=== PATIENT | female | born 1990 | race Caucasian/White ===

== ENCOUNTER 2016-11-22 13:42 | Emergency (ER) | payer BC, MEDICAID ==
--- NOTE | 2016-11-22 15:53 | RAD ---
HISTORY: Inversion injury COMPARISONS: None VIEWS: 3, Frontal, lateral, and oblique views of the left foot FINDINGS: BONE DENSITY: Normal. BONES: There is a chronic appearing, possibly fibrous union fracture of the proximal third metatarsal. There is no acute fracture. JOINTS: There is no arthropathy. ALIGNMENT: There is no dislocation. SOFT TISSUES: Unremarkable. OTHER FINDINGS: None. IMPRESSION: CHRONIC APPEARING FRACTURE OF THE PROXIMAL THIRD METATARSAL. NO ACUTE OSSEOUS INJURY. IF SYMPTOMS PERSIST, RECOMMEND REPEAT IMAGING.
--- NOTE | 2016-11-22 15:53 | RAD ---
HISTORY: Inversion injury COMPARISONS: Left foot dated November 22, 2016 VIEWS: 3, Frontal, lateral, and oblique views of the left ankle FINDINGS: BONE DENSITY: Normal. BONES: Again noted is a chronic appearing fracture of the proximal third metatarsal. There is no acute fracture. JOINTS: There is no arthropathy. ALIGNMENT: There is no dislocation. SOFT TISSUES: Unremarkable. OTHER FINDINGS: None. IMPRESSION: NO ACUTE OSSEOUS INJURY. AGAIN NOTED IS CHRONIC APPEARING FRACTURE OF THE PROXIMAL THIRD METATARSAL. IF SYMPTOMS PERSIST, RECOMMEND REPEAT IMAGING.
[2016-11-22 16:06] VITALS: BP 112/64
--- NOTE | 2016-11-22 16:54 | UC ---
Lower Extremity/Ankle HPI - HPI Summary HPI Summary: INJURY FOUR MONTHS AGO TWISTED LEFT FOOT AND ANKLE; TWO DAYS AGO TWISTED AND HIT LEFT FOOT AGAIN, PAIN TO TOP OF FOOT WORSENING. - History of Current Complaint Chief Complaint: UCLowerExtremity Stated Complaint: FOOT PAIN Time Seen by Provider: 11/22/16 14:59 Hx Obtained From: Patient, Family/Housing Inspectors Hx Last Menstrual Period: 11/10/16 Onset/Duration: Sudden Onset, Gradual Onset, Lasting Days, Lasting Weeks - 4 MONTHS, Still Present, Worse Since - TODAY Severity Initially: Mild Severity Currently: Moderate Pain Intensity: 5 Pain Scale Used: 0-10 Numeric Aggravating Factor(s): Standing, Ambulation Alleviating Factor(s): Rest, Elevation Able to Bear Weight: Yes - WITH DISCOMFORT - Risk Factors Gout Risk Factors: Negative DVT Risk Factors: Negative Septic Arthritis Risk Factor: Negative - Allergies/Home Medications Allergies/Adverse Reactions: Allergies Allergy/AdvReac Type Severity Reaction Status Date / Time Cefprozil [From Cefzil] Allergy Hives Verified 11/22/16 13:55 Home Medications: Home Medications Control Pill 1 tab PO DAILY 11/22/16 [History Confirmed 11/22/16] Omeprazole CAP* [Prilosec CAP* 20 MG] 20 mg PO DAILY 11/22/16 [History Confirmed 11/22/16] PMH/Surg Hx/FS Hx/Imm Hx Previously Healthy: Yes - Surgical History Surgical History: Yes Surgery Procedure, Year, and Place: 2014 - Family History Known Family History: Negative: Other - NO JOINT LAXITY - Social History Occupation: Employed Full-time Lives: With Family Alcohol Use: Rare Substance Use Type: Marijuana Substance Use Comment - Amount & Last Used: everyday Smoking Status (MU): Light Every Day Tobacco Smoker Type: Cigarettes Amount Used/How Often: 5-10 per day Review of Systems Constitutional: Negative Skin: Negative Eyes: Negative ENT: Negative Respiratory: Negative Cardiovascular: Negative Gastrointestinal: Negative Genitourinary: Negative Motor: Negative Neurovascular: Negative Musculoskeletal: Arthralgia, Edema, Myalgia Neurological: Negative Psychological: Negative All Other Systems Reviewed And Are Negative: Yes Physical Exam Triage Information Reviewed: Yes Appearance: Well-Appearing, No Pain Distress, Well-Nourished Vital Signs: Initial Vital Signs Temp 98.1 F 11/22/16 13:47 Pulse 105 11/22/16 13:47 Resp 18 11/22/16 13:47 BP 141/76 11/22/16 13:47 Pulse Ox 99 11/22/16 13:47 Vital Signs Reviewed: Yes Eye Exam: Normal ENT Exam: Normal Dental Exam: Normal Neck exam: Normal Respiratory Exam: Normal Respiratory: Positive: Chest non-tender, Lungs clear, Normal breath sounds, No respiratory distress Cardiovascular Exam: Normal Cardiovascular: Positive: RRR, No Murmur, Pulses Normal Abdominal Exam: Normal Musculoskeletal: Positive: ROM Intact, Strength Limited @ - LEFT FOOT ANKLE, Edema @ - LEFT Neurological Exam: Normal Psychological Exam: Normal Psychological: Positive: Normal Response To Family Skin Exam: Normal Lower Extremity Course/Dx - Differential Dx/Diagnosis Differential Diagnosis/HQI/PQRI: Fracture (Closed), Sprain, Strain Provider Diagnoses: CLOSED CHRONIC APPEARING FRACTURE OF LEFT PROXIMAL THIRD METATARSAL Discharge - Discharge Plan Condition: Stable Disposition: HOME Patient Education Materials: Foot Fracture in Adults (ED) Forms: *Work Release Referrals: Teddy Vera MD [Medical Doctor] - Estelle Mendoza PA [Primary Care Provider] -
== END 2016-11-22 16:33 | disposition home or self-care (01) ==
LOC: UCCORT 13:42
DX: S92.335G Nondisplaced fracture of third metatarsal bone, left foot, subsequent encounter for fracture with delayed healing (principal); W22.8XXD Striking against or struck by other objects, subsequent encounter; Z88.1 Allergy status to other antibiotic agents; F12.90 Cannabis use, unspecified, uncomplicated; F17.210 Nicotine dependence, cigarettes, uncomplicated
CPT/HCPCS: 99203; G0463

== ENCOUNTER 2017-01-05 08:40 | Day surgery (SDC) | payer MEDICAID ==
[~2017-01-05 08:40] MED LIST: Buffered Lidocaine 0.9% SYRIN* 5 ML/SYR SYRINGE INTRADERM ONE
[2017-01-05] MEDS ORDERED: Clindamycin 900 MG IVPREMIX(* 900 MG/50 ML SDV IV ONE ×2 (08:51)
[2017-01-05] MEDS ORDERED: Buffered Lidocaine 0.9% SYRIN* 5 ML/SYR SYRINGE ONE ×2 (08:51)
[2017-01-05] MEDS ORDERED: fentaNYL* 50 MCG/ML 2 ML VIAL (100 MCG VIAL) ONE ×4 (09:40→12:02)
[2017-01-05] MEDS ORDERED: Famotidine IV* 10 MG/ML 2 ML (20 mg) ONE ×4 (09:40→10:54)
[2017-01-05] MEDS ORDERED: Midazolam* 1 MG/ML 2 ML VIAL (2 MG) ONE ×2 (09:40)
[2017-01-05] MEDS ORDERED: Lidocaine 2% PF * 5 ML VIAL ONE ×2 (10:54)
[2017-01-05] MEDS ORDERED: Ketorolac INJ* 30 MG/ML 1 ML VIAL ONE ×2 (10:54)
[2017-01-05] MEDS ORDERED: Propofol* 10 MG/ML 20 ML BTL IV PUSH ONE ×2 (10:54)
[2017-01-05] MEDS ORDERED: Dexamethasone IV* 4 MG/ML 1 ML (4 MG) ONE ×2 (10:54)
[2017-01-05] MEDS ORDERED: Rocuronium* 10 MG/ML VIAL ONE ×2 (10:55)
[2017-01-05] MEDS ORDERED: DiMENhydriNATE IV* 50 MG/ML VIAL IV PUSH PRN (10:57)
[2017-01-05] MEDS ORDERED: Acetaminophen TAB* 325 MG PO PRN (10:57)
[2017-01-05] MEDS ORDERED: HYDROcodone/ACETAMIN 5-325 MG* 1 TAB PO PRN (10:57)
[2017-01-05] MEDS ORDERED: fentaNYL* 50 MCG/ML 2 ML VIAL (100 MCG VIAL) IV PRN (10:57)
[2017-01-05] MEDS ORDERED: PROCHLORPERAZINE INJ 5 MG/ML 2 ML VIAL IV PRN (10:57)
[2017-01-05] MEDS ORDERED: Levalbuterol 0.63MG/3ML NEB* UNIT OF USE INH PRN (10:57)
[2017-01-05] MEDS ORDERED: HYDROmorphone INJ* 1 MG/ML CARPUJECT SYRINGE IV PRN (10:57)
[2017-01-05] MEDS ORDERED: HYDROmorphone INJ* 1 MG/ML CARPUJECT SYRINGE ONE ×4 (12:14→14:01)
[2017-01-05] MEDS ORDERED: oxyCODONE TAB* 5 MG TAB ONE ×2 (14:01)
[2017-01-05 15:11] VITALS: BP 115/65
--- NOTE | 2017-01-05 21:01 | RAD ---
CPT II Codes: 6045F INDICATION: Left foot ORIF TECHNIQUE: Intraoperative fluoroscopy was provided during plate and screw fixation of the left third metatarsal. FINDINGS: A single spot film depicts a plate and screw fixator spanning the proximal left third metatarsal. Fluoroscopy time: 1 second IMPRESSION: As above.
--- NOTE | 2017-01-06 03:36 | OP ---
DATE OF OPERATION: 01/05/17 - [facility] DATE OF : 89 ATTENDING SURGEON: Sebas Alvarado MD. LEASE ANALYST: Atiya Gil PA-C. ANESTHESIOLOGIST: Dr. Knight ANESTHESIA: General PRE-OP DIAGNOSIS: Nonunion, left third metatarsal fracture. POST-OP DIAGNOSIS: Nonunion, left third metatarsal fracture. OPERATIVE PROCEDURE: Open reduction internal fixation, left third metatarsal fracture, nonunion with some graft on. DESCRIPTION OF PROCEDURE: The patient was taken to the operating room where a curvilinear incision was made over the dorsum of the third metatarsal. We incised between the long tendons, incising a short brevis tendon, which coursed obliquely. The nonunion was identified and taken down with 15 blade and a small freer elevator. The fracture surfaces were prepared for fixation using a 2.4 mm bur, and we placed a small amount of graft on into the defect. We then used the 4 hole dorsal locking Synthes plate to fix the fracture. We used the pins above proximal and distal to the fracture for compression and then the plate was precontoured and fixed with the 2.7 mm cortical screws. Excellent fixation alignment was obtained and verified with a C-arm. We then irrigated thoroughly closing with 2-0 Vicryl and 3-0 nylon. A compression dressing and plaster splint applied. [id number]/[facility] #: [id number] MTDD
== END 2017-01-05 15:07 | disposition home or self-care (01) ==
LOC: OR 08:40
PROVIDERS: ATTEND Orthopaedic Surgery
DX: S92.33 Fracture of third metatarsal bone (principal); F17.210 Nicotine dependence, cigarettes, uncomplicated; W22.8XXD Striking against or struck by other objects, subsequent encounter; Y92.89 Other specified places as the place of occurrence of the external cause
CPT/HCPCS: 76000; 81025; A9270-GY; C1713; C1776; C9359; J1100; J1170; J1885; J2250; J2704; J3010

== ENCOUNTER 2017-08-09 15:33 | Emergency (ER) | payer MEDICAID, OTHER ==
--- OUTSIDE RECORDS SUMMARY | 2017-08-09 15:46 | XMS REPORT ---
:1990 External Reference #:[id number] Author Organization [facility] Address [address] [address] Phone [phone] Care Team Providers Name Role Phone [facility] Care Team Information Speech Teacher Unavailable Estelle Mendoza RPA Primary Care Physician Unavailable Payers Type Date Identification Numbers Payment Provider Subscriber Medicaid Policy Number: [id number] Medicaid Peyton Tucker Group Name: 1 1 [address] PayID: [id number] [place] [address] Problems Description No Information Family History Date Family Member(s) Problem(s) Comments General Diabetes General Hypertension Father Diabetes Mother Hypertension Social History Type Date Description Comments Marital Status Single Lives With Boyfriend Lives With Children 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 ETOH Use Rarely consumes alcohol Recreational Drug Use sporadically uses herbal supplements Smoking Patient is a former smoker Daily Caffeine Consumes on average 2 cups of regular coffee per day Daily Caffeine Consumes on average 2 sodas per day Exercise Type/Frequency Exercises regularly Allergies, Adverse Reactions, Alerts Date Description Reaction Status Severity Comments 12/24/2016 Cefzil Urticaria active 03/18/2017 Seasonal-Fall active Medications Medication Date Status Form Strength Qnty SIG Indications Ordering Provider Omeprazole Active Capsules DR 20mg 1 by Unknown 000 mouth every day Ibuprofen Active Capsules 200mg 3 po as Unknown 000 needed Oxycodone HCL Hx Tablets 5mg 40tabs 1-2 tabs Sebas 017 - by mouth Christiano every 4-6 M.D. 017 hours as needed Vital Signs Date Vital Result Comment 07/29/2017 Height 70 inches 5'10" Weight 270.00 lb Heart Rate 66 /min BP Systolic Sitting 132 mmHg BP Diastolic Sitting 78 mmHg Respiratory Rate 18 /min Pain Level 7 BMI (Body Mass Index) 38.7 kg/m2 03/18/2017 Height 70 inches 5'10" Heart Rate 98 /min BP Systolic 134 mmHg BP Diastolic 74 mmHg Respiratory Rate 20 /min Pain Level 0 O2 % BldC Oximetry 99 % 02/18/2017 Height 70 inches 5'10" Weight 270.00 lb Heart Rate 92 /min BP Systolic Sitting 128 mmHg BP Diastolic Sitting 68 mmHg Respiratory Rate 18 /min Pain Level 0 BMI (Body Mass Index) 38.7 kg/m2 01/28/2017 Height 70 inches 5'10" Weight 270.00 lb Heart Rate 90 /min BP Systolic Sitting 142 mmHg BP Diastolic Sitting 82 mmHg Respiratory Rate 20 /min Pain Level 0 BMI (Body Mass Index) 38.7 kg/m2 01/14/2017 Height 70 inches 5'10" Weight 270.00 lb Heart Rate 102 /min BP Systolic Sitting 120 mmHg BP Diastolic Sitting 70 mmHg Respiratory Rate 18 /min Body Temperature 99.4 F Pain Level 4 BMI (Body Mass Index) 38.7 kg/m2 12/24/2016 Height 70 inches 5'10" Weight 264.00 lb Heart Rate 60 /min BP Systolic Sitting 142 mmHg BP Diastolic Sitting 86 mmHg Respiratory Rate 18 /min Pain Level 5 BMI (Body Mass Index) 37.9 kg/m2 11/24/2016 Height 70 inches 5'10" Weight 265.00 lb Heart Rate 92 /min BP Systolic Sitting 132 mmHg BP Diastolic Sitting 78 mmHg Respiratory Rate 16 /min Pain Level 5 O2 % BldC Oximetry 98 % Ra BMI (Body Mass Index) 38.0 kg/m2 Results Test Date Test Result H/L Range Note Xray 12/09/2016 CT Extremity Lower Left Wo <pending> Procedures Date CPT Code Description Status 03/18/2017 55538 Rad Exam; Foot Comp Completed 02/18/2017 58551 Rad Exam; Foot Comp Completed 01/14/2017 90944 Rad Exam; Foot Comp Completed 01/14/2017 06073 Short Leg Cast Completed 01/05/2017 19340 Repair Nonunion/Malunion Metatarsal Completed 01/05/2017 17525 Repair Nonunion/Malunion Metatarsal Completed Encounters Type Date Location Provider CPT E/M Dx Office Visit 07/29/2017 [facility] Sebas Alvarado, 84807 [id number] 2:45p Of Pharmacist [facility]ardo Office Visit 12/24/2016 [facility] Sebas Alvarado 21523 [id number] 3:00p Of Pharmacist Manager At [facility] Office Visit 11/24/2016 [place] [address] [id number] 1:15p Of Pharmacist [facility] [place] [id number] Plan of Care 07/29/2017 - Sebas Alvarado M.D.[id number] Nondisp fx of 3rd metatarsal bone, l ft, 7thKNew Xrays:Foot Left 3+ VWSCT Extremity Lower Left WoFollow up:after testing is completed
--- OUTSIDE RECORDS SUMMARY | 2017-08-09 15:46 | XMS REPORT ---
:1990 External Reference #:[id number] Author Organization [facility] Address [address] [place] [address] Phone [phone] Care Team Providers Name Role Phone [facility] Care Team Information Supervisor Engine Repair Unavailable Estelle Mendoza RPA Primary Care Physician Unavailable Payers Type Date Identification Numbers Payment Provider Subscriber Medicaid Policy Number: [id number] Medicaid Peyton Tucker Group Name: 1 1 [address] PayID: [id number] [place] [address] Problems Description No Information Family History Date Family Member(s) Problem(s) Comments General Diabetes General Hypertension Father Diabetes Mother Hypertension Social History Type Date Description Comments Marital Status Single Lives With Boyfriend Lives With Children 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 Rarely consumes alcohol Recreational Drug [...] needed Vital Signs Date Vital Result Comment 08/05/2017 Height 70 inches 5'10" Weight 270.00 lb Heart Rate 84 /min BP Systolic Sitting 118 mmHg BP Diastolic Sitting 60 mmHg Respiratory Rate 16 /min Pain Level 4 BMI (Body Mass Index) 38.7 kg/m2 07/29/2017 Height 70 inches 5'10" Weight 270.00 [...] Procedures Date CPT Code Description Status 03/18/2017 21746 Rad Exam; Foot Comp Completed 02/18/2017 32537 Rad Exam; Foot Comp Completed 01/14/2017 52502 Rad Exam; Foot Comp Completed 01/14/2017 04630 Short Leg Cast Completed 01/05/2017 05655 Repair Nonunion/Malunion Metatarsal Completed 01/05/2017 61901 Repair Nonunion/Malunion Metatarsal Completed Encounters Type Date Location Provider CPT E/M Dx Office Visit 08/05/2017 [facility] Sebas Alvarado [id number] 10:30a [facility]2016 [facility] Sebas Alvarado 46283 [id number] 3:00p [facility] [place] [address] [id number] 1:15p Of [facility] [id number] Plan of Care Future Appointment(s):09/02/2017 2:45 pm - Sebas Alvarado M.D. at [facility]/02/2018 - Sebas Alvarado M.D.[id number] Nondisp fx of 3rd metatarsal bone, l ft, 7thKFollow up:3-4 weeks
[2017-08-09 16:05] VITALS: BP 131/80
--- NOTE | 2017-08-09 16:42 | UC ---
General HPI - HPI Summary HPI Summary: pt states fx L foot 01/20. had surgery 3rd metatarsal. 07/24/17 slipped on water at work causing foot pain. f/u dr dan-ortho. told fx but old vs new and placed in a boot plus out of work. was to return to work tomorrow but past 3 days is having a sharp shooting pain from her L buttock into her L leg and foot. States prior hx of sciatica and this feels the same. admits to some low back discomfort. denies back injury, numb/weak extremities, fever, saddle anesthesia plus bowel/bladder dysfunction. - History of Current Complaint Chief Complaint: UCLowerExtremity Stated Complaint: LEFT FOOT INJURY Time Seen by Provider: 08/09/17 16:16 Hx Obtained From: Patient Hx Last Menstrual Period: 07/27/17 Onset/Duration: Gradual Onset Timing: Constant Pain Intensity: 5 Alleviating: nothing - Allergy/Home Medications Allergies/Adverse Reactions: Allergies Allergy/AdvReac Type Severity Reaction Status Date / Time cefprozil [From Cefzil] Allergy Hives Verified 08/09/17 16:07 latex Allergy Rash Verified 08/09/17 16:07 PMH/Surg Hx/FS Hx/Imm Hx - Additional Past Medical History Additional PMH: L foot fx, sciatica GI/ History: Gastroesophageal Reflux - Surgical History Surgical History: Yes Surgery Procedure, Year, and Place: 2014-[place]- WITH REMOVAL LARGE CYST FROM [place]. 01/2017 3rd Metatarsal plate - Family History Known Family History: Negative: Other - NO JOINT LAXITY - Social History Occupation: Employed Full-time Lives: With Family Alcohol Use: Rare Substance Use Type: Marijuana Substance Use Comment - Amount & Last Used: USED WITHIN THE LAST WEEK Smoking Status (MU): Former Smoker Type: Cigarettes Amount Used/How Often: 5-10 per day DECREASED TO 2-5 CIGARETTES PER DAY X OFF AND ON 10 YRS Have You Smoked in the Last Year: Yes - Immunization History Vaccination Up to Date: Yes Review of Systems Constitutional: Negative Skin: Negative Eyes: Negative ENT: Negative Respiratory: Negative Cardiovascular: Negative Gastrointestinal: Negative Genitourinary: Negative Motor: Negative Neurovascular: Negative Musculoskeletal: Other: - low back ache with sharp pain from l buttock down L leg Neurological: Negative Psychological: Negative Is Patient Immunocompromised?: No All Other Systems Reviewed And Are Negative: Yes Physical Exam Triage Information Reviewed: Yes Appearance: Well-Appearing Vital Signs: Initial Vital Signs Temp 98.1 F 08/09/17 15:59 Pulse 87 08/09/17 15:59 Resp 16 08/09/17 15:59 BP 131/80 08/09/17 15:59 Pulse Ox 100 08/09/17 15:59 Eyes: Positive: Conjunctiva Clear ENT: Positive: Normal ENT inspection Neck: Positive: Supple, Nontender, No Lymphadenopathy Respiratory: Positive: Lungs clear, Normal breath sounds Cardiovascular: Positive: RRR, No Murmur Abdomen Description: Positive: Nontender, No Organomegaly, Soft Bowel Sounds: Positive: Present Musculoskeletal: Positive: Other: - LLE: Boot L foot, removed by pt. Leg has no swelling, discoloration. post op scar L foot. No calf pain or cords. S/V M is intact. Back: no gross deformity, swelling or discoloration. Mild tenderness paraspinal mm lumbar region. ROM is intact. L sciatic notch tenderness. + straight leg raise on L. no saddle anesthesia. 2+ reflexes and 5/5 strength x4. steady gait. Neurological: Positive: Alert Psychological: Positive: Age Appropriate Behavior Skin Exam: Normal Course/Dx - Course Course Of Treatment: no concern for DVT, cellulitis. no cauda equina. hx and exam c/w sciatica. will tx nsaid and PT. pt to resume her boot per orthopedics. - Differential Dx - Multi-Symptom Provider Diagnoses: sciatica L Discharge - Sign-Out/Discharge Documenting (check all that apply): Discharge/Admit/Transfer - Discharge Plan Condition: Stable Disposition: HOME Prescriptions: Naproxen [Naprosyn 500 mg tab] 500 mg PO BID #14 tablet Patient Education Materials: Sciatica (ED) Forms: *Work Release Referrals: Estelle Mendoza PA [Primary Care Provider] - 7 Days - Billing Disposition and Condition Condition: STABLE Disposition: HOME
== END 2017-08-09 16:56 | disposition home or self-care (01) ==
LOC: UCCORT 15:33
DX: M54.32 Sciatica, left side (principal); Z87.891 Personal history of nicotine dependence
CPT/HCPCS: 99212; G0463

== ENCOUNTER 2018-11-15 13:29 | Emergency (ER) | payer MEDICAID, OTHER ==
[2018-11-15 14:02] VITALS: BP 148/58
--- NOTE | 2018-11-15 14:11 | UC ---
Skin Complaint HPI - HPI Summary HPI Summary: 28-year-old female who has been picking at a hangnail on her right middle finger which developed into a paronychia over the past week. - History of Current Complaint Chief Complaint: UCUpperExtremity Time Seen by Provider: 11/15/18 13:57 Stated Complaint: RIGHT MIDDLE FINGER COMPLAINT Hx Obtained From: Patient Hx Last Menstrual Period: last depo shot about 1 week ago ?: No Onset/Duration: Gradual Onset Skin Exposure Onset/Duration: Days Ago Timing: Constant Onset Severity: Mild Current Severity: Moderate Pain Intensity: 6 Location: Other - Distal right middle finger. Character: Swelling, Pain, Redness Aggravating Factor(s): Touch Alleviating Factor(s): Nothing Associated Signs & Symptoms: Positive: Tenderness Related History: Other: - Patient picked at a hangnail. - Allergy/Home Medications Allergies/Adverse Reactions: Allergies Allergy/AdvReac Type Severity Reaction Status Date / Time cefprozil [From Cefzil] Allergy Hives Verified 11/15/18 14:02 latex Allergy Rash Verified 11/15/18 14:02 PMH/Surg Hx/FS Hx/Imm Hx Previously Healthy: Yes Respiratory History: Asthma - Surgical History Surgical History: Yes Surgery Procedure, Year, and Place[place] WITH REMOVAL LARGE CYST FROM [place]. 01/2017 3rd Metatarsal plate - Family History Known Family History: Negative: Other - NO JOINT LAXITY - Social History Occupation: Unemployed Alcohol Use: Rare Substance Use Type: Marijuana Substance Use Comment - Amount & Last Used: USED WITHIN THE LAST WEEK Smoking Status (MU): Former Smoker Type: Cigarettes Amount Used/How Often: 5-10 per day DECREASED TO 2-5 CIGARETTES PER DAY X OFF AND ON 10 YRS Have You Smoked in the Last Year: No When Did the Patient Quit Smoking/Using Tobacco: quit 2 years ago - Immunization History Vaccination Up to Date: Yes Review of Systems All Other Systems Reviewed And Are Negative: Yes Skin: Positive: Other - Redness tenderness swelling and pus underneath the skin to the distal right middle finger over the past few days from picking at a hangnail Motor: Positive: Negative Neurovascular: Positive: Negative Musculoskeletal: Positive: Negative Neurological: Positive: Negative Psychological: Positive: Negative Is Patient Immunocompromised?: No Physical Exam Triage Information Reviewed: Yes Appearance: Well-Appearing, No Pain Distress, Well-Nourished Vital Signs: Initial Vital Signs Temp 98.4 F 11/15/18 13:57 Pulse 70 11/15/18 13:57 Resp 16 11/15/18 13:57 BP 148/58 11/15/18 13:57 Pulse Ox 100 11/15/18 13:57 Vital Signs Reviewed: Yes Musculoskeletal: Positive: Strength Intact, ROM Intact Neurological: Positive: Alert, Muscle Tone Normal Psychological Exam: Normal Skin: Positive: Other - Patient has a paronychia of the distal right middle finger with swelling, redness, tenderness on palpation and pus underneath the skin. Good peripheral pulses neuro sensation and capillary refill. Course/Dx - Course Course Of Treatment: Patient is comfortable here. After a timeout the area where the pus was located was incised with moderate amount of pus drainage. Band-Aid was applied. The patient's to do warm salt water soaks 4-6 times a day for 20 minutes each time and follow-up with her primary care provider in for 5 days if no improvement. Go to the emergency room for any worsening symptoms. - Diagnoses Provider Diagnosis: Paronychia of right middle finger Discharge - Sign-Out/Discharge Documenting (check all that apply): Patient Departure All imaging exams completed and their final reports reviewed: No Studies - Discharge Plan Condition: Fair Disposition: HOME Prescriptions: Amoxicillin/Clavulanate TAB* [Augmentin TAB 875*] 875 mg PO BID 10 Days #20 tab Patient Education Materials: Paronychia (ED) Referrals: Estelle Mendoza PA [Primary Care Provider] - Additional Instructions: Warm salt water soaks 4-6 times a day for 20 minutes each time. Follow-up with your primary care provider in 3 or 4 days if no improvement or if worsening symptoms or red streaks up your arm or fever or chills. - Billing Disposition and Condition Condition: FAIR Disposition: Home - Attestation Statements Provider Attestation: This patient was not seen by me. I was available for consult. MANSI
== END 2018-11-15 14:34 | disposition home or self-care (01) ==
LOC: UCCORT 13:29
DX: L03.011 Cellulitis of right finger (principal); Z87.891 Personal history of nicotine dependence
CPT/HCPCS: 10060; 99212; G0463